=== PATIENT | male | born 2000 | race Caucasian/White ===

== ENCOUNTER 2019-11-28 15:02 | Outpatient (CLI) | payer BC ==
--- NOTE | 2019-11-28 16:04 | ULT ---
Bilateral renal ultrasound CLINICAL INDICATION: Abnormal kidney function. COMPARISON: None FINDINGS: Right kidney: There is lobulated appearance of the right kidney with areas of scarring most prominent in the midportion right kidney. There is no hydronephrosis, renal calculus, or renal mass identified.The right kidney measures 10.8 cm x 5.1 cm. Left kidney: There is a lobulated appearance of the right kidney with areas of scarring seen. No hydr onephrosis, renal calculus, or renal mass is identified.The left kidney is small in size compared to the right measuring 7.8 cm x 3 cm. Urinary bladder: Distended and has a normal sonographic appearance. Urinary bladder volume is 257 mL. Post void images demonstrate no significant post void residual. IMPRESSION: 1. Atrophic left kidney with cortical scarring. 2. Mild focal area of scarring in the midportion right kidney. The right kidney otherwise has a jessica l sonographic appearance. 3. No evidence of hydronephrosis.
== END 2019-11-28 15:03 | disposition home or self-care (01) ==
LOC: SCSULT 15:02
DX: R94.4 Abnormal results of kidney function studies (principal); N26.1 Atrophy of kidney (terminal); N28.89 Other specified disorders of kidney and ureter
CPT/HCPCS: 76770